=== PATIENT | male | born 1960 | race Caucasian/White ===

== ENCOUNTER 2025-01-14 09:18 | Outpatient (AMB) | payer MEDICARE, SELFPAY ==
--- NOTE | 2025-01-14 09:38 | MHC.PC.OV ---
Vital Signs 01/14/25 09:39 Height 6 ft 3 in Weight 272 lb BMI 34.0 BP 116/84 Blood Pressure Location Lt brachial Position Sitting Respiration 18 Pulse 78 Pulse Source Pulse Oximeter Temp 98.9 F Temp Source Oral Pulse Oximetry (%) 97 Oxygen Delivery Method Room Air Intake Visit Reasons: establish care Intake Note: Patient is a new patient here to establish care. Transferring care from [facility] in [place], [place] . Medical records have been requested and have been received. Business Process Associate Required: No Accompanied by: Self / Same As Patient Allergies No Known Allergies Allergy (Verified 01/16/25 20:59) Medication List - Last Reconciled 01/14/25 by ESPINOZA Gore alcohol swabs (BD Alcohol Swabs) pad topical BID aspirin 81 mg PO DAILY atorvastatin mg PO DAILY bupropion HCl SR 200 mg PO BID clopidogrel mg PO DAILY insulin glargine (Lantus Solostar U-100 Insulin) units subcut insulin lispro (Humalog KwikPen (U-100) Insulin) subcut isosorbide mononitrate ER 30 mg PO DAILY lisinopril 20 mg PO DAILY metformin ER 500 mg PO BID metoprolol succinate ER 100 mg PO DAILY pen needle, diabetic As directed quetiapine 200 mg PO BEDTIME Tobacco use date assessed: 01/14/25 Fall risk assessment: 2 + Falls in past year Last assessed Fall Risk: 01/14/25 Dental Screening Dental Screen Date: 01/14/25 Did you have a dental visit in the last 12 months?: No Did you have a dental problem in the last 6 months where you did not have access to dental care?: No Was dental information given to patient?: No HPI establish care HPI Details The patient is presenting care to establishing care Previous PCP: Last visit: Last PE: Specialist: OBGYN:n/a Past medical history: Medications: Family HX: strong heart disease in family, son had a heart attack 40 years old. Problem: The patient is a 64-year-old male presenting with the need for medication review related to his chronic diagnoses of type 2 diabetes mellitus and cardiovascular disease. Upon transition to a Medicare Advantage plan, the patient faced provider acceptance issues, resulting in a lapse in seeing his previous provider. His diabetes, initially managed with metformin for borderline conditions, necessitated insulin following a recent elucidation of severe hyperglycemia. Cardiovascular history is significant for a myocardial infarction at age 36, requiring stent placement, and continued management with medications including atorvastatin and isosorbide dinitrate for stable angina. Family history is remarkable for heart disease, with early sudden cardiac events in immediate family members. His additional comorbid conditions include insomnia treated with Seroquel and depression managed with bupropion. Osteoarthritis pain is intermittently addressed with ibuprofen, with awareness of cautious use to prevent exacerbating renal status. Plans to investigate insulin regimens and lipids are intended to optimize his comprehensive care, aligning with examinations revealing slightly elevated creatinine levels, suggesting careful avoidance of NSAIDs. He participates actively in his health management with regular glucose monitoring since beginning insulin, showing overall trends in improvement with current levels mostly below 200 mg/dL except occasional spikes. 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 and slipped couple time while walking on ice reports Rebel, [place] chromium coronary stent 3 to 4 years ago, he currently does not have a entry level Reports left plantar recurrent callus-reports has been shaving this down with a razor blade [facility] Surgical History (Updated 01/14/25 @ 10:44 by ESPINOZA Gore) Hx of heart artery stent Family History Mother Brain cancer Heart disease Father Heart attack Son Heart attack Daughter Mental health problem Social History Housing: Apartment Are you a primary care worker to a significant other at home: No Do you presently have visiting nurse or other home services: No Alcohol intake: never Patient Tobacco Use Status: Former Tobacco user Tobacco use type: Cigarette Years Smoked: ~25; Quit in 2005 e-Cigarette/Vaping Use: Never Used Substance Use Type: Marijuana service: No Current occupational status: employed Cognitive needs: No Hearing needs: No Vision needs: Yes (Glasses) Questionnaire PHQ-9 Over the last 2 weeks, how often have you been bothered by any of the following problems? 1. Little interest or pleasure in doing things: not at all 2. Feeling down, depressed, or hopeless: not at all 3. Trouble falling or staying asleep, or sleeping too much: several days 4. Feeling tired or having little energy: not at all 5. Poor appetite or overeating: not at all 6. Feeling bad about yourself - or that you are a failure or have let yourself or your family down: not at all 7. Trouble concentrating on things, such as reading the newspaper or watching television: not at all 8. Moving or speaking so slowly that other people could have noticed. Or the opposite - being so fidgety or restless that you have been moving around a lot more than usual: not at all 9. Thoughts that you would be better off or of hurting yourself in some way: not at all Total score: 1 Depression Screening Interpretation: Negative Depression Screening Done: Yes 20924 - PHQ-9 Billing: Yes Source: Developed by Drs. Agus Bishop, Chasity Bueno, Cesar Cummings and colleagues, with an educational ralph from [employer]. Thrive Questionnaire Date Thrive assessed: 01/14/25 I am a: Patient What is your living situation today?: I have a steady place to live Within the past 12 months, did the food you bought not last and you didn't have the money to get more?: Never true Within the past 12 months, did you worry whether your food would run out before you got money to buy more?: Never true Do you have trouble paying for medicines?: No Do you have trouble getting transportation to medical appointments?: No Do you have trouble paying your heating and electricity bill?: No Do you have trouble taking care of your child, family member or friend?: No Do you have trouble with day-to-day activities such as bathing, preparing meals, shopping, managing finances, etc.?: No Are you currently unemployed and looking for a job?: No Are you interested in more education?: No Please select the resources that you would like help with: None Currently or been in a relationship where the following occur: No concerns reported THRIVE Score: 0 AUDIT C Alcohol Use Questionnaire (AUDIT-C) 1. How often do you have a drink containing alcohol?: Never 3. How often do you have six or more drinks on one occasion?: Never Total Score: 0 Score Reviewed/Action Taken: No MIN-7 AMB Questionnaire MIN-7 Date MIN - 7 assessed: 01/14/25 Feeling nervous, anxious, or on edge: 0 = Not at all Not being able to stop or control worryin = Not at all Worrying too much about different things: 0 = Not at all Trouble relaxin = Not at all Being so restless that it is hard to sit still: 0 = Not at all Becoming easily annoyed or irritable: 0 = Not at all Feeling afraid as if something awful might happen: 0 = Not at all Total MIN-7 score (0-4 normal; 5-9 mild; 10-14 moderate; 15-21 severe): 0 Source: Developed by Drs. Agus Bishop, Chasity Bueno, Cesar Cummings and colleagues, with an educational ralph from [employer]. MIN-7 Assessment Billing MIN-7 Assessment Tool: MIN-7 Assessment 38713 Review of Systems Const Denies headache(s) Eyes Denies loss of vision ENT Denies vertigo, Denies dizziness, Denies headache(s) and Denies sore throat Card Denies chest pain, Denies leg edema and Denies lightheadedness Resp Denies cough, Denies hemoptysis and Denies wheezing GI Denies abdominal pain, Denies melena, Denies constipation, Denies diarrhea and Denies vomiting Denies dysuria, Denies urinary frequency and Denies urinary urgency Musc Reports arthralgias (hx osteoarthritis), Denies joint swelling, Denies numbness and Denies tingling Neuro Denies Abnormal speech present, Denies behavioral changes, Denies vertigo, Denies dizziness, Denies headache(s), Denies loss of vision, Denies memory loss, Denies numbness and Denies tingling Psych Denies anxiety, Denies behavioral changes, Denies depression, Denies memory loss and Denies panic attacks Andrew/Lymph Denies easy bleeding and Denies easy bruising Aller/Immun Denies wheezing Physical exam (Primary Care) Vital Signs: Last Vital Signs Temp 98.9 F 01/14/25 09:39 Pulse 78 01/14/25 09:39 Resp 18 01/14/25 09:39 BP 116/84 01/14/25 09:39 Pulse Ox 97 01/14/25 09:39 Oxygen Delivery Method Room Air 01/14/25 09:39 BMI result Body Mass Index 34.0 Tobacco/Smoking Status: Tobacco use Status Tobacco use date assessed 01/14/25 01/14/25 10:00 Patient Tobacco Use Status Former Tobacco user 01/14/25 10:00 Tobacco use type Cigarette 01/14/25 10:00 e-Cigarette/Vaping Use Never Used 01/14/25 10:00 PHQ-9: PHQ-9 Score PHQ-9: Total score 1 01/14/25 10:29 Depression Screening Interpretation: Negative Thrive Assessment: Date of Thrive Assessment Date Thrive assessed 01/14/25 01/14/25 10:00 Currently or been in a relationship where the following occur: No concerns reported Const General: healthy appearing, no acute distress, alert and awake Nutritional Appearance: well nourished Orientation/consciousness: oriented to person, oriented to place and oriented to time HENMT Ears: TM's normal bilaterally General nose exam: Normal nasal mucous membranes and turbinates present Eyes Conjunctivae: conjunctivae normal Sclerae: sclerae normal Pupils: Equal, round and reactive pupils present Neck Neck: Yes no lymphadenopathy and Yes no JVD Thyroid: Thyroid normal Carotids: no bruits Resp Effort & Inspection: normal respiratory effort and not tachypneic Auscultation: no crackles, no rales, no rhonchi and no wheezes Cardio Rate: regular rate Rhythm: regular rhythm Heart sounds: no murmurs and normal S1 and S2 GI Palpation (GI): Soft to palpation, nontender, no hepatomegaly and no splenomegaly Auscultation: normal bowel sounds Skin General skin exam: no rashes or lesions noted and dry skin Neuro General: oriented to person, oriented to place and oriented to time Cranial nerves: Yes Equal, round and reactive pupils present Speech: No Abnormal speech present Gait exam (Neuro): Normal gait present Motor exam (neuro): no tremor noted Extrem Right upper extremity: full ROM Left upper extremity: full ROM Right lower extremity: full ROM; no edema Left lower extremity: full ROM; no edema Psych Mental Status: mental status grossly normal Speech and movement: Normal speech and movement present Affect: normal affect Attitude: cooperative Thought process: Normal thought process present Results AMB Hemoglobin A1c AMB Hemoglobin A1c 8.4 % Last Edit by Day Mahoney CMA on 01/14/25 10:34 Results Reviewed Results Reviewed: Laboratory Last Values Hgb A1c (Clinic) 8.4 % (4.0-6.0) H 01/14/25 10:29 Coding Level of Care Code New Pt Level 4 (75031) Diagnoses Hypertension, unspecified type I10 Hypertension type: unspecified Type 2 diabetes mellitus with hyperglycemia, without long-term current use of insulin E11.65 Diabetes mellitus type: type 2 Diabetes mellitus usp insulin use: without long term care social worker use Diabetes mellitus complication status: with hyperglycemia Myocardial infarction, unspecified NH type, unspecified artery I21.9 Myocardial infarction type: unspecified Involved coronary artery: unspecified coronary artery Hx of heart artery stent Z95.5 Additional Codes MIN-7 Assessment Billing - MIN-7 Assessment Tool: MIN-7 Assessment 23884 ([id number]) PHQ-9 - 93568 - PHQ-9 Billing: Yes ([id number]) Time Spent (min) 39 Assessment & Plan Assessment & Plan (1) HTN (hypertension): Code(s): I10 - Essential (primary) hypertension Category: Medical Qualifiers: Hypertension type: unspecified Qualified Code(s): I10 - Essential (primary) hypertension (2) Diabetes mellitus: Code(s): E11.9 - Type 2 diabetes mellitus without complications Category: Medical Qualifiers: Diabetes mellitus type: type 2 Diabetes mellitus long term care social worker insulin use: without long term care social worker use Diabetes mellitus complication status: with hyperglycemia Qualified Code(s): E11.65 - Type 2 diabetes mellitus with hyperglycemia (3) Heart attack: Code(s): I21.9 - Acute myocardial infarction, unspecified Category: Medical Qualifiers: Myocardial infarction type: unspecified Involved coronary artery: unspecified coronary artery Qualified Code(s): I21.9 - Acute myocardial infarction, unspecified (4) Hx of heart artery stent: Code(s): Z95.5 - Presence of coronary angioplasty implant and graft Category: Surgical Plan Management of type 2 diabetes involves continued use of insulin therapy with regular glucose monitoring in line with a sliding scale, aiming for an HbA1c level below 7 for optimized control. Cardiovascular management includes the use of atorvastatin and isosorbide mononitrate ER for lipid and angina control, with an emphasized need for a cardiology consult. To address insomnia and depression, bupropion and Seroquel regimens remain vital, providing mood stabilization and a framework for restorative sleep. Awareness regarding potential nephrotoxic impacts of NSAIDs necessitates minimal usage to prevent kidney complications. Podiatry assessment is advised for diabetic foot care, with a careful review of plantar care and skin integrity encouraged to preempt complications. Patient was informed and verbally consented to the use of an ambient scribe for clinic note documentation during this visit. Orders: Orders AMB Hemoglobin A1c 01/14/25 E11.9 - Type 2 diabetes mellitus without complications Complete Blood Count Auto Diff 01/14/25 E11.9 - Type 2 diabetes mellitus without complications, I21.9 - Acute myocardial infarction, unspecified, Z00.00 - Encounter for general adult medical examination without abnormal findings, Z95.5 - Presence of coronary angioplasty implant and graft Comprehensive [place]. Panel Fast 01/14/25 I21.9 - Acute myocardial infarction, unspecified, Z00.00 - Encounter for general adult medical examination without abnormal findings Lipid Panel 01/14/25 I21.9 - Acute myocardial infarction, unspecified, Z00.00 - Encounter for general adult medical examination without abnormal findings Vitamin D 25-OH Total 01/14/25 I21.9 - Acute myocardial infarction, unspecified, Z00.00 - Encounter for general adult medical examination without abnormal findings TSH reflex Free T4 01/14/25 I21.9 - Acute myocardial infarction, unspecified, Z00.00 - Encounter for general adult medical examination without abnormal findings Hemoglobin A1c 01/14/25 I21.9 - Acute myocardial infarction, unspecified, Z00.00 - Encounter for general adult medical examination without abnormal findings UA CC w/rflx Micro + Cult 01/14/25 I21.9 - Acute myocardial infarction, unspecified, Z00.00 - Encounter for general adult medical examination without abnormal findings Microalbumin, Random (w Creat) 01/14/25 I21.9 - Acute myocardial infarction, unspecified, Z00.00 - Encounter for general adult medical examination without abnormal findings Medications: New isosorbide mononitrate ER 60 mg PO DAILY atorvastatin 80 mg PO QPM insulin glargine (Lantus Solostar U-100 Insulin) 20 units subcut
[2025-01-14 09:39] VITALS: BP 116/84; PULSE 78; RESP 18; TEMP 37.2; O2SAT 97; BMI 34.0
== END 2025-01-14 10:48 | disposition home or self-care (01) ==
LOC: HO.HMCH 09:19
DX: E11.9 Type 2 diabetes mellitus without complications (principal)

== ENCOUNTER → 2025-01-14 09:18 | Outpatient (BNVA) | payer MEDICARE, SELFPAY | DX: Z76.89 Persons encountering health services in other specified circumstances (principal); I10 Essential (primary) hypertension; E11.65 Type 2 diabetes mellitus with hyperglycemia; I21.9 Acute myocardial infarction, unspecified; Z79.4 Long term (current) use of insulin; Z95.5 Presence of coronary angioplasty implant and graft | CPT/HCPCS: 83036; 96127; 99202 ==

== ENCOUNTER 2025-03-29 06:11 | Outpatient (REF) | payer MEDICARE, SELFPAY ==
[2025-03-29 06:26] LABS: MANUAL DIFF FLAG NO
[2025-03-29 07:31] LABS: Hemoglobin A1C 235.6270 umol/L; Total Hemoglobin (HGBA1C) 3876.5014 umol/L
[2025-03-29 07:33] LABS: Hematocrit 44.5 % (42.0-52.0); Hemoglobin 15.1 g/dl (14.0-18.0); Imm Gran Abs Auto 0.03 X10*3/uL (0.00-0.03); Imm Gran Pct Auto 0.4 % (0.0-0.4); Lymphocytes Absolute Auto 2.2 X10*3/uL (1.2-4.9); Mean Corpuscular HGB Conc 33.9 g/dl (31.0-36.0); Mean Corpuscular Hemoglobin 31.0 pg (27.0-33.0); Mean Corpuscular Volume 91.4 fL (80.0-98.0); NRBC Abs Auto 0.000 X10*3/uL (0.0-0.012); NRBC Pct Auto 0.0 /100WBC (0.0-0.2); Platelet Count 263 X10*3/uL (160-400); Red Blood Count 4.87 X10*6/uL (4.60-5.80); White Blood Count 8.0 X10*3/uL (4.8-10.8)
[2025-03-29 07:36] LABS: Appearance Urine Clear; Glucose Urine UA Negative (Negative); PH 5.5 (5.0-9.0); Specific Gravity - Urine 1.015 (1.005-1.025); UMIC TRIGGER UACC YES
[2025-03-29 07:45] LABS: UACC Culture Trigger YES
[2025-03-29 08:11] LABS: Alanine Aminotransferase 35 U/L (0-40); Albumin Level 4.0 g/dL (3.5-5.0); Alkaline Phosphatase 93 U/L (39-117); Anion Gap 12 (12-20); Aspartate Amino Transferase 20 U/L (5-37); Blood Urea Nitrogen 18 mg/dL (9-16); Calcium 8.8 mg/dL (8.4-10.2); Carbon Dioxide 24 mmol/L (22-29); Chloride 109 mmol/L (96-108); Cholesterol 133 mg/dL (<200); Estimated Glomerular Filt Rate 59; HDL Cholesterol 28 mg/dL (>40); Potassium 4.4 mmol/L (3.3-5.1); Sodium 141 mmol/L (135-145); Total Protein 6.7 g/dL (6.5-8.0); Triglycerides 154 mg/dL (<150)
[2025-03-29 08:33] LABS: Microalbum/Creatinine Ratio Ur 157.7 ug/mg cr (<30)
== END 2025-03-29 06:12 | disposition home or self-care (01) ==
LOC: HO.LAB 06:11
DX: Z00.00 Encounter for general adult medical examination without abnormal findings (principal); I21.9 Acute myocardial infarction, unspecified; E11.9 Type 2 diabetes mellitus without complications; Z95.5 Presence of coronary angioplasty implant and graft
CPT/HCPCS: 36415; 80053; 80061; 81001; 82043; 82306; 82570; 83036; 84443; 85025; 87086

== ENCOUNTER 2025-04-15 08:40 | Outpatient (AMB) | payer MEDICARE, SELFPAY ==
--- NOTE | 2025-04-15 08:43 | A.OFFPC_ITS ---
Vital Signs 04/15/25 08:44 04/15/25 09:47 Height 6 ft 3 in Weight 259 lb BMI 32.4 BP 150/90 H 148/90 H Blood Pressure Location Lt brachial Lt brachial Position Sitting Sitting Respiration 16 Pulse 82 Pulse Source Pulse Oximeter Temp Source Temporal Artery Scan Pulse Oximetry (%) 96 Oxygen Delivery Method Room Air Intake Visit Reasons: dm/HTN Housekeeping Room Attendant Required: No Accompanied by: Self / Same As Patient Allergies No Known Allergies Allergy (Verified 04/15/25 09:19) Medication List - Last Reconciled 04/15/25 by ESPINOZA Gore alcohol swabs (BD Alcohol Swabs) pad topical BID aspirin 81 mg PO DAILY atorvastatin 80 mg PO QPM bupropion HCl SR 200 mg PO BID clopidogrel mg PO DAILY insulin glargine (Lantus Solostar U-100 Insulin) 20 units subcut insulin lispro (Humalog KwikPen (U-100) Insulin) subcut isosorbide mononitrate ER 60 mg PO DAILY lisinopril 20 mg PO DAILY metformin ER 500 mg PO BID metoprolol succinate ER 100 mg PO DAILY pen needle, diabetic As directed quetiapine 200 mg PO BEDTIME Tobacco use date assessed: 04/15/25 Fall risk assessment: 1 Fall in past year Last assessed Fall Risk: 04/15/25 Dental Screening Dental Screen Date: 04/15/25 HPI dm/HTN HPI Details The patient is a 65-year-old male presenting with management of chronic conditions including hypertension, diabetes, and depression. Hypertension has been managed with medication since the age of 21, and the patient reports consistent medication adherence. Blood pressure has been stable until recently, possibly influenced by stress related to family issues. Reports that he had taken his daughter back in the house because she is struggling with mental health issues and does not want to get help. Type 2 Diabetes Mellitus is being managed with metformin, with recent A1c levels showing improvement from 8.4% to 7.3%. The patient has reduced food intake, contributing to a weight loss of 13 pounds. Depression is being treated with bupropion, which was initiated during a hospitalization 20 years ago. The patient does not currently see a psychiatrist or therapist. Patient reports that he has adequate placed and has been compliant with his medications. Hyperlipidemia is being managed with Lipitor, and the patient has been advised to take omega-3 fish oil to improve HDL cholesterol levels. Vitamin D deficiency has been identified, and supplementation with vitamin D3 at 2000 IU daily has been recommended. Insomnia is managed with Seroquel, which the patient reports helps improve sleep quality. [facility] Medical History (Updated 04/15/25 @ 10:30 by ESPINOZA Gore) Diabetes mellitus Heart attack HTN (hypertension) Insomnia Depression CAD (coronary artery disease) Surgical History Hx of heart artery stent Family History Mother Brain cancer Heart disease Father Heart attack Son Heart attack Daughter Mental health problem Social History Housing: Apartment Are you a primary skin care technician to a significant other at home: No Do you presently have visiting nurse or other home services: No Alcohol intake: never Patient Tobacco Use Status: Former Tobacco user Tobacco use type: Cigarette Years Smoked: ~25; Quit in 2005 e-Cigarette/Vaping Use: Never Used Substance Use Type: Marijuana service: No Current occupational status: employed Cognitive needs: No Hearing needs: No Vision needs: Yes (Glasses) Questionnaire Thrive Questionnaire Date Thrive assessed: 04/15/25 I am a: Patient What is your living situation today?: I have a steady place to live Within the past 12 months, did the food you bought not last and you didn't have the money to get more?: Never true Within the past 12 months, did you worry whether your food would run out before you got money to buy more?: Never true Do you have trouble paying for medicines?: No Do you have trouble getting transportation to medical appointments?: No Do you have trouble paying your heating and electricity bill?: No Do you have trouble taking care of your child, family member or friend?: No Do you have trouble with day-to-day activities such as bathing, preparing meals, shopping, managing finances, etc.?: No Are you currently unemployed and looking for a job?: No Are you interested in more education?: No Please select the resources that you would like help with: None Currently or been in a relationship where the following occur: No concerns reported THRIVE Score: 0 AUDIT C Alcohol Use Questionnaire (AUDIT-C) 3. How often do you have six or more drinks on one occasion?: Never Total Score: 0 MIN-7 AMB Questionnaire MIN-7 Date MIN - 7 assessed: 04/15/25 Source: Developed by Drs. Agus Bishop, Chasity Bueno, Cesar Cummings and colleagues, with an educational ralph from [facility]. Review of Systems Const Denies body aches, Denies chills, Denies fever(s), Denies headache(s) and Denies poor appetite Eyes Reports no additional complaints ENT Denies dysphagia, Denies dizziness, Denies headache(s) and Denies odynophagia Card Denies chest pain, Denies syncope, Denies edema, Denies irregular heart rhythm, Denies lightheadedness and Denies dyspnea Resp Denies cough and Denies dyspnea GI Denies abdominal pain, Denies constipation, Denies dysphagia, Denies diarrhea, Denies nausea, Denies odynophagia and Denies vomiting Reports no additional complaints Musc Reports no additional complaints and Denies abnormal gait Skin/Breast Reports system reviewed and no additional complaints, except as documented Neuro Denies abnormal gait, Denies dizziness, Denies syncope and Denies headache(s) Psych Denies anxiety, Denies depression and Reports other (Increased stress due to family issues) Physical exam (Primary Care) Vital Signs: Last Vital Signs Pulse 82 04/15/25 08:44 Resp 16 04/15/25 08:44 BP 148/90 H 04/15/25 09:47 Pulse Ox 96 04/15/25 08:44 Oxygen Delivery Method Room Air 04/15/25 08:44 BMI result Body Mass Index 32.4 Tobacco/Smoking Status: Tobacco use Status Tobacco use date assessed 04/15/25 04/15/25 08:49 Patient Tobacco Use Status Former Tobacco user 04/15/25 08:49 Tobacco use type Cigarette 04/15/25 08:49 e-Cigarette/Vaping Use Never Used 04/15/25 08:49 Thrive Assessment: Date of Thrive Assessment Date Thrive assessed 04/15/25 04/15/25 08:49 Currently or been in a relationship where the following occur: No concerns reported Const General: cooperative, healthy appearing, comfortable and no acute distress Orientation/consciousness: patient oriented x3 HENMT Head: Yes normocephalic Ears: hearing grossly normal bilaterally General nose exam: Normal external nose present Eyes General: appearance normal, both eyes and all related structures Conjunctivae: conjunctivae normal Neck Neck: Yes full ROM and Yes no lymphadenopathy Resp Effort & Inspection: normal respiratory effort Auscultation: clear to auscultation bilaterally, no crackles, no rales, no rhonchi and no wheezes Cardio Rate: regular rate Rhythm: regular rhythm Heart sounds: S1 normal heart sound present, no gallops and no murmurs Peripheral pulses: Peripheral pulses 2+ throughout GI Inspection: Yes obesity Palpation (GI): Soft to palpation and nontender Auscultation: normal bowel sounds General: Yes no CVA tenderness Back/Spine/Pelvis Back: no CVA tenderness Skin General skin exam: no rashes or lesions noted Neuro General: patient oriented x3 Gait exam (Neuro): Normal gait present Extrem General: Yes normal to inspection, Yes full ROM and No edema Right upper extremity: full ROM Left upper extremity: full ROM Right lower extremity: full ROM; no edema Left lower extremity: full ROM; no edema Psych Affect: normal affect Attitude: cooperative Insight: Good insight present (Psych) Judgement: Good judgement present (Psych) Results AMB Hemoglobin A1c AMB Hemoglobin A1c 7.3 % Last Edit by ZEE Elizalde on 04/15/25 09 :14 Results Reviewed Results Reviewed: Laboratory Last Values Hgb A1c (Clinic) 7.3 % (4.0-6.0) H 04/15/25 09:13 Laboratory Tests 03/29/25 04/15/25 06:25 09:13 WBC 8.0 RBC 4.87 Hgb 15.1 Hct 44.5 MCV 91.4 MCH 31.0 MCHC 33.9 RDW 13.7 Plt Count 263 MPV 10.3 Immature Gran % (Auto) 0.4 Neut % (Auto) 60.7 Lymph % (Auto) 27.9 Sodium 141 Potassium 4.4 Chloride 109 H Carbon Dioxide 24 Anion Gap 12 BUN 18 H Creatinine 1.23 Estimated GFR 59 Fasting Glucose 88 Estimat Average Glucose 174 Hgb A1c (Clinic) 7.3 H Hemoglobin A1c % 7.7 H Calcium 8.8 Total Bilirubin 0.5 AST 20 ALT 35 Alkaline Phosphatase 93 Total Protein 6.7 Albumin 4.0 Triglycerides 154 H Cholesterol 133 LDL Cholesterol, Calc 75 HDL Cholesterol 28 L 25-OH Vitamin D Total 13.0 L TSH 2.27 Coding Level of Care Code Est Pt Level 4 (82735) Diagnoses Hypertension, unspecified type I10 Hypertension type: unspecified Type 2 diabetes mellitus with hyperglycemia, without long-term current use of insulin E11.65 Diabetes mellitus complication status: with hyperglycemia Diabetes mellitus exterminator insulin use: without exterminator use Diabetes mellitus type: type 2 Myocardial infarction, unspecified CT type, unspecified artery I21.9 Involved coronary artery: unspecified coronary artery Myocardial infarction type: unspecified Hx of heart artery stent Z95.5 Coronary artery disease involving [place] coronary artery of [place] heart without angina pectoris I25.10 Associated angina: without angina Coronary Disease-Associated Artery/Lesion type: [place] artery [place] vs. transplanted heart: [place] heart Hyperlipidemia, unspecified hyperlipidemia type E78.5 Hyperlipidemia type: unspecified Vitamin D deficiency E55.9 Depression, unspecified depression type F32.A Depression Type: unspecified Insomnia, unspecified type G47.00 Insomnia type: unspecified Time Spent (min) 41 Assessment & Plan Assessment & Plan (1) HTN (hypertension): Code(s): I10 - Essential (primary) hypertension Category: Medical Qualifiers: Hypertension type: unspecified Qualified Code(s): I10 - Essential (primary) hypertension Plan: The patient blood pressure on his previous visit was 116/84. Today the patient blood pressure is 150/90 rechecked blood pressure was 148/90. The patient reports that he recently had a cup of coffee but he also took his medication a hour ago, so they should start working. The patient also reports that the only new thing is he recently took his daughter back in that is struggling with mental issues and he has been under a lot of stress lately. The patient does not monitor his blood pressure at home, encouraged him to get a blood pressure monitoring started doing this. We will also have the patient return in 1 week for a nurse visit to get his blood pressure checked. Reinforced low-salt diet, continue lisinopril 20 mg daily, continue metoprolol succinate ER 100 mg daily, isosorbide mononitrate ER 60 mg daily (2) Diabetes mellitus: Code(s): E11.9 - Type 2 diabetes mellitus without complications Category: Medical Qualifiers: Diabetes mellitus complication status: with hyperglycemia Diabetes mellitus exterminator insulin use: without assisted use Diabetes mellitus type: type 2 Qualified Code(s): E11.65 - Type 2 diabetes mellitus with hyperglycemia Plan: Patient A1c on 01/14/2025 was 8.4% in office. Repeat A1c in office today was 7.3 % the patient also had blood work done that showed an A1c of 7.7%. A1c goal is less than 7%. Discussed with the patient that given that his numbers are trending down we will not make any changes today. But he should to continue to make dietary modifications like lowering sugar/carbohydrate intake. We will repeat fasting glucose and A1c in 3 months. (3) Heart attack: Code(s): I21.9 - Acute myocardial infarction, unspecified Category: Medical Qualifiers: Involved coronary artery: unspecified coronary artery Myocardial infarction type: unspecified Qualified Code(s): I21.9 - Acute myocardial infarction, unspecified Plan: Patient has a strong family history of coronary artery disease was setting cardiac arrest. The patient's father had a fatal heart attack at age 47 and his son also had a fatal heart attack at age 40. The patient has not been following up with Cardiology. Discussed with the patient that given his risk he should be monitored by Cardiology. We will put in a referral (4) Hx of heart artery stent: Code(s): Z95.5 - Presence of coronary angioplasty implant and graft Category: Surgical Plan: status post left heart regularization with with evidence of chronically occluded LAD and mid RCA status post large bare-metal stent in 2017 (5) CAD (coronary artery disease): Code(s): I25.10 - Atherosclerotic heart disease of [place] coronary artery without angina pectoris Category: Medical Qualifiers: Associated angina: without angina Coronary Disease-Associated Artery/Lesion type: [place] artery [place] vs. transplanted heart: [place] heart Qualified Code(s): I25.10 - Atherosclerotic heart disease of [place] coronary artery without angina pectoris Plan: He denies chest pain/dyspnea with or without exertion-appears stable The patient had a premature coronary disease status post myocardial infarction status post tPA approximately 30 years ago and unstable angina status post left heart regularization with with evidence of chronically occluded LAD and mid RCA status post large bare-metal stent in 2017. The patient denies chest pain with her without exertion. He is on aspirin 81 mg daily, atorvastatin 80 mg q.p.m., clopidogrel 75 mg daily, metoprolol succinate ER 100 mg daily, isosorbide mononitrate ER 60 mg daily, lisinopril 20 mg daily. Patient reports that he has not been following up with any ice bag assembler in a long time. We will refer the patient to [facility] ice bag assembler. (6) HLD (hyperlipidemia): Code(s): E78.5 - Hyperlipidemia, unspecified Category: Medical Qualifiers: Hyperlipidemia type: unspecified Qualified Code(s): E78.5 - Hyperlipidemia, unspecified Plan: Triglycerides 154, total cholesterol 132, LDL 75, HDL 28 Discussed lifestyle modifications including dietary changes and physical activity Continue atorvastatin 80 mg q.p.m Start. [place] 3 supplements (7) Vitamin D deficiency: Code(s): E55.9 - Vitamin D deficiency, unspecified Category: Medical Plan: Cholecalciferol 2000 IU ordered (8) Depression: Code(s): F32.A - Depression, unspecified Category: Medical Qualifiers: Depression Type: unspecified Qualified Code(s): F32.A - Depression, unspecified Plan: Encouraged CBT, per patient he has not follow up with a psychiatrist or therapist in a long time. Reports that he was at a bad place in his life about 20 years ago and was inpatient at [facility]. There, he was started on bupropion HCl SR 200 mg b.i.d., Seroquel 200 mg at bedtime. Reports that he has been in a good place since. Denies SI/HI (9) Insomnia: Code(s): G47.00 - Insomnia, unspecified Category: Medical Qualifiers: Insomnia type: unspecified Qualified Code(s): G47.00 - Insomnia, unspecified Plan: Reinforced sleep hygiene Continue Seroquel 200 mg at bedtime Plan Follow up in 3 months Orders: Orders AMB Hemoglobin A1c Today Z13.9 - Encounter for screening, unspecified Complete Blood Count Auto Diff 3 Months E11.65 - Type 2 diabetes mellitus with hyperglycemia, E55.9 - Vitamin D deficiency, unspecified, E78.5 - Hyperlipidemia, unspecified, I10 - Essential (primary) hypertension, Z95.5 - Presence of coronary angioplasty implant and graft Comprehensive [place]. Panel Fast 3 Months E11.65 - Type 2 diabetes mellitus with hyperglycemia, E55.9 - Vitamin D deficiency, unspecified, E78.5 - Hyperlipidemia, unspecified, I10 - Essential (primary) hypertension, Z95.5 - Presence of coronary angioplasty implant and graft Lipid Panel 3 Months E11.65 - Type 2 diabetes mellitus with hyperglycemia, E55.9 - Vitamin D deficiency, unspecified, E78.5 - Hyperlipidemia, unspecified, I10 - Essential (primary) hypertension, Z95.5 - Presence of coronary angioplasty implant and graft TSH reflex Free T4 3 Months E11.65 - Type 2 diabetes mellitus with hyperglycemia, E55.9 - Vitamin D deficiency, unspecified, E78.5 - Hyperlipidemia, unspecified, I10 - Essential (primary) hypertension, Z95.5 - Presence of coronary angioplasty implant and graft UA CC w/rflx Micro + Cult 3 Months E11.65 - Type 2 diabetes mellitus with hyperglycemia, E55.9 - Vitamin D deficiency, unspecified, E78.5 - Hyperlipidemia, unspecified, I10 - Essential (primary) hypertension, Z95.5 - Presence of coronary angioplasty implant and graft Vitamin D 25-OH Total 3 Months E11.65 - Type 2 diabetes mellitus with hyperglycemia, E55.9 - Vitamin D deficiency, unspecified, E78.5 - Hyperlipidemia, unspecified, I10 - Essential (primary) hypertension, Z95.5 - Presence of coronary angioplasty implant and graft Hemoglobin A1c 3 Months E11.65 - Type 2 diabetes mellitus with hyperglycemia, E55.9 - Vitamin D deficiency, unspecified, E78.5 - Hyperlipidemia, unspecified, I10 - Essential (primary) hypertension, Z95.5 - Presence of coronary angioplasty implant and graft Referrals Cardiology Referral I21.9 - Acute myocardial infarction, unspecified, I25.10 - Atherosclerotic heart disease of [place] coronary artery without angina pectoris, Z95.5 - Presence of coronary angioplasty implant and graft Medications: New cholecalciferol (vitamin D3) 50 mcg PO DAILY 90 caps 3RF
[2025-04-15 08:44] VITALS: BP 150/90; PULSE 82; RESP 16; O2SAT 96; BMI 32.4
[2025-04-15 09:47] VITALS: BP 148/90
== END 2025-04-15 09:44 | disposition home or self-care (01) ==
LOC: HO.HMCH 08:40
DX: I10 Essential (primary) hypertension (principal); E11.65 Type 2 diabetes mellitus with hyperglycemia; I25.2 Old myocardial infarction; Z95.5 Presence of coronary angioplasty implant and graft; I25.10 Atherosclerotic heart disease of native coronary artery without angina pectoris; E78.5 Hyperlipidemia, unspecified; E55.9 Vitamin D deficiency, unspecified; F32.A Depression, unspecified; G47.00 Insomnia, unspecified

== ENCOUNTER → 2025-04-15 08:40 | Outpatient (BNVA) | payer MEDICARE, SELFPAY | DX: E11.9 Type 2 diabetes mellitus without complications (principal); I10 Essential (primary) hypertension; F32.A Depression, unspecified; E78.5 Hyperlipidemia, unspecified; E55.9 Vitamin D deficiency, unspecified; G47.00 Insomnia, unspecified; E11.65 Type 2 diabetes mellitus with hyperglycemia; I21.9 Acute myocardial infarction, unspecified; I25.10 Atherosclerotic heart disease of native coronary artery without angina pectoris; Z95.5 Presence of coronary angioplasty implant and graft; Z79.899 Other long term (current) drug therapy | CPT/HCPCS: 83036; 96127; 99212 ==

== ENCOUNTER 2025-09-21 05:56 | Outpatient (REF) | payer MEDICARE, SELFPAY ==
--- OUTSIDE RECORDS SUMMARY | 2025-09-21 06:00 | XMS_ITS | Clinical Summary ---
Author Organization [facility] Address [address] [place] [id number] Phone Care Team Providers Care Wind Turbine Technician Name Role Phone Pcp, Unknown Primary Care Provider Unavailabl e Social History Tobacco Use Types Packs/Day Years Used Date Smoking Tobacco: Never Assessed Education Answer Date Recorded Are you interested in more education? Not on isak e 10/25/2024 Are you concerned about learning? Not on file 10/25/2024 No 10/25/2024 No 10/25/2024 Digital Access Answer Date Recorded No 10/25/2024 No 10/25/2024 Reliable internet access at home? Not on file 10/25/2024 Device with a working camera? Not on file Sex and Gender Information Value Date Recorded Sex Assigned at Not on file Legal Sex Male 11:10 AM EST Gender Identity Not on file Sexual Orientation Not on file Plan of Treatment Upcoming Encounters Date Type Department Care Team (Late st Contact Info) Description 12/29/2025 3:00 PM EDT Office Visit [facility] [address] [place] [id number] Allison Tate [address] [place] [address], [address] [place] [address] [email or web address] Health Maintenance Due Date Last Done Comments Adult Td,Tdap Booster 1959 LIPID PANEL 1959 DEPRESSION SCREENING 1971 SMOKING Hx and SMOKELESS TOB ACCO SCREENING 02/09/1972 HEPATITIS C SCREENING 1977 COLOGUARD 02/09/2004 COLONOSCOPY 02/09/2004 COLORECTAL CANCER SCREENING 02/09/2004 FIT TEST 02/09/2004 FOBT 02/09/2004 SIGMOIDOSCOPY 02/09/2004 VIRTUAL COLONOSCOPY 02/09/2004 PNEUMOCOCCAL VACCINES (50+ y ears) (1 of 1 - PCV) 2009 ZOSTER VACCINES (1 of 2) 2009 INFLUENZA VACCINE (#1) 2025 COVID-19 VACCINE (1 - 2024-2 6 season) 2025 RSV VACCINE (1 - 1-dose 75+ series) 2034 HEPATITIS A VACCINES Aged Out No long er eligible based on patient's age to complete this topic HIB VACCINES Aged Out No longer eligi ble based on patient's age to complete this topic MENINGOCOCCAL VACCINES (ACWY) Aged Out No longer eligible based on patient's age to complete this topic MENINGOCOCCAL VACCINES (B) Aged Out N o longer eligible based on patient's age to complete this topic Medical Devices Not on file Insurance MEDICARE PART A & B [facility] MEDICARE REPLACEMENT MEDICARE PART A & B [facility] MEDICARE REPLACEMENT MEDICARE PART A & B [facility] RE[facility] MEDICARE PART A & B [facility] MEDICARE REPLACEMENT MEDICARE PART A & B [employer] MEDICARE REPLACEMENT MEDICARE PART A & B [employer] MEDICARE REPLACEMENT Care Teams Wind Turbine Technician Relationship Specialty Start Date End Date Pcp, Unknown PCP - General 10/25/24 Additional Source Comments The information contained in this document represents components of the legal health record. It is not the complete legal health record.[facility]
[2025-09-21 06:15] LABS: MANUAL DIFF FLAG NO
[2025-09-21 07:18] LABS: Hematocrit 47.9 % (42.0-52.0); Hemoglobin 15.9 g/dl (14.0-18.0); Imm Gran Abs Auto 0.05 X10*3/uL (0.00-0.03); Imm Gran Pct Auto 0.5 % (0.0-0.4); Lymphocytes Absolute Auto 2.0 X10*3/uL (1.2-4.9); Mean Corpuscular HGB Conc 33.2 g/dl (31.0-36.0); Mean Corpuscular Hemoglobin 31.0 pg (27.0-33.0); Mean Corpuscular Volume 93.4 fL (80.0-98.0); NRBC Abs Auto 0.000 X10*3/uL (0.0-0.012); NRBC Pct Auto 0.0 /100WBC (0.0-0.2); Platelet Count 288 X10*3/uL (160-400); Red Blood Count 5.13 X10*6/uL (4.60-5.80); White Blood Count 9.5 X10*3/uL (4.8-10.8)
[2025-09-21 07:59] LABS: Alanine Aminotransferase 28 U/L (0-40); Albumin Level 4.2 g/dL (3.5-5.0); Alkaline Phosphatase 92 U/L (39-117); Anion Gap 12 (12-20); Aspartate Amino Transferase 22 U/L (5-37); Blood Urea Nitrogen 19 mg/dL (9-16); Calcium 9.3 mg/dL (8.4-10.2); Carbon Dioxide 26 mmol/L (22-29); Chloride 109 mmol/L (96-108); Cholesterol 129 mg/dL (<200); Estimated Glomerular Filt Rate > 60; HDL Cholesterol 38 mg/dL (>40); Potassium 4.3 mmol/L (3.3-5.1); Sodium 143 mmol/L (135-145); Total Protein 6.9 g/dL (6.5-8.0); Triglycerides 94 mg/dL (<150)
[2025-09-21 08:42] LABS: Appearance Urine Clear; Glucose Urine UA 100 mg/dL (Negative); PH 5.5 (5.0-9.0); Specific Gravity - Urine 1.025 (1.005-1.025); UMIC TRIGGER UACC YES
== END 2025-09-21 05:57 | disposition home or self-care (01) ==
LOC: HO.LAB 05:56
DX: I10 Essential (primary) hypertension (principal); E11.65 Type 2 diabetes mellitus with hyperglycemia; E55.9 Vitamin D deficiency, unspecified; E78.5 Hyperlipidemia, unspecified; Z95.5 Presence of coronary angioplasty implant and graft
CPT/HCPCS: 36415; 80053; 80061; 81001; 81003; 82306; 83036; 84443; 85025